=== PATIENT | male | born 1975 | race Native Hawaiian/Other Pacific Islander ===

== ENCOUNTER 2018-07-21 10:43 | Emergency (ER) | payer OTHER ==
[~2018-07-21] VITALS: Ht 172.7 cm; Wt 93.0 kg
[2018-07-21 10:53] VITALS: TEMP 97.3
[2018-07-21 11:23] LABS: PLATELET COUNT 315 K/uL (142-355)
[2018-07-21 11:29] LABS: POTASSIUM 4.2 mmol/L (3.6-5.2); SODIUM 140 mmol/L (136-145)
[2018-07-21 12:07] VITALS: BP 114/78
== END 2018-07-21 12:07 | disposition home or self-care (01) ==
LOC: ED 10:43
PROVIDERS: Internal Medicine
DX: R07.89 Other chest pain (principal); R10.13 Epigastric pain
CPT/HCPCS: 36415; 80053; 82550; 84484; 85027; 93005; 99283

== ENCOUNTER 2021-05-12 13:38 | Outpatient (CLI) | payer OTHER ==
[~2021-05-12] VITALS: Ht 172 cm; Wt 84.4 kg
== END 2021-05-12 22:25 | disposition home or self-care (01) ==
LOC: INF 13:38
PROVIDERS: ATTEND Internal Medicine Endocrinology, Diabetes & Metabolism
DX: Z23 Encounter for immunization (principal); U07.1 COVID-19
CPT/HCPCS: 96365; Q0239; Q0245